=== PATIENT | male | born 1985 | race Hispanic/Latino ===

== ENCOUNTER 2018-05-24 12:48 | Emergency (ER) | payer OTHER ==
[~2018-05-24] VITALS: Ht 172.7 cm; Wt 99.8 kg
--- OUTSIDE RECORDS SUMMARY | 2018-05-24 12:51 | XMS REPORT ---
Author Author [facility] Address Unknown Phone Unavailable Care Team Providers Care Interior Design Faculty Member Name Role Phone ERNESTO GRAHAM Unavailable Unavailable Problems This patient has no known problems. Allergies, Adverse Reactions, Alerts This patient has no known allergies or adverse reactions. Medications This patient has no known medications. Results Test Description Test Time Test Comments Text Results Atomic Results Result Comments TISSUE EXAM 2017-09-07 14:22:00 Surgical Pathology Report Case: [id number] Authorizing Provider: Emily Graham Collected: 09/05/2017 1136 MD Ernesto Ordering Location: [facility] ENDOSCOPY Received: 09/05/2017 1505 SERVICES Pathologist: Kathleen Holguin MD Specimens: A) - Small Bowel, NOS B) - Stomach C) - Biopsy, Gastroesophageal Junction, esophagitis A. SMALL BOWEL, BIOPSY: - FEATURES SUGGESTIVE OF PEPTIC DUODENITISB. STOMACH, BIOPSY: - CHRONIC INACTIVE GASTRITIS, MILD C. 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 Clinical correlation recommended. The endoscopy report is reviewed in conjunction with the case.The slides from specimens A and C were shown in consultation to Dr. Teresa Orourke who agrees with the diagnosis.60411 X 3, 94837 X 3Precordial pain, dyspepsia, burping, epigastric painA. Small bowel biopsy; B. Stomach biopsy; C. Gastroesophageal junction biopsyThe specimen is received in three containers of formalin all labeled with the patient's information. Part A labeled "small bowel biopsy" consists of three fragments of stauffer tissue ranging from 0.1 to 0.2 cm, submitted A1. Part B labeled "stomach biopsy" consists of three fragments of stauffer tissue ranging from 0.1 to 0.4 cm, submitted B1. Part C labeled "gastroesophageal junction biopsy" and consists of two fragments of stauffer-white soft tissue ranging from less than 0.1 to 0.2 cm, submitted C1. CG/pl A. Sections through the small bowel biopsy as well deeper level show small bowel mucosa with focally mildly blunted villi. There is mildly increased chronic inflammation in the lamina propria. Jayden glands are present. PAS stain highlights the focal gastric metaplasia. There are no granulomas, infectious organisms, dysplasia or m alignancy. B. Sections of the stomach biopsy show gastric antrum and oxyntic type mucosa. There is mildly increased chronic inflammation in the lamina propria. There is no significant acute inflammation. There is no intestinal metaplasia, dysplasia or malignancy. Warthin-starry stain for Helicobacter pylori is negative. C. Sections of the gastroesophageal junction biopsies show columnar junctional mucosa and a detached piece of gastric foveolar mucosa. The detached mucosa has focal intestinal metaplasia. There is no dysplasia or malignancy. The junctional mucosa has chronic inflammation in the stroma. The squamous epithelium has mild basilar hyperplasia. Warthin-starry stain for Helicobacter pylori is negative. The following special studies were performed on this case and the interpretation is incorporated in the diagnostic report above:A. PAS - positive for gastric metaplasiaB and C: Warthin-starry - negative for Helicobacter pylori.
--- OUTSIDE RECORDS SUMMARY | 2018-05-24 12:51 | XMS REPORT | Clinical Summary ---
Author Author [facility] Organization [facility] Address Unknown Phone Unavailable Care Team Providers Care Director [employer] Name Role Phone Partha Dallas MD PCP Allergies No Known Allergies Medications End Date Status Medication Sig Dispensed Refills Start Date Active cholecalciferol, vitamin Take 1,000 0 D3, 1,000 unit capsule Units by mouth daily. Active omeprazole (PRILOSEC) 40 40 mg daily . 0 MG capsule 8 09/04/2017 Discontinued pantoprazole (PROTONIX) Take 1 tablet 90 tablet 3 40 MG tabletIndications: (40 mg total) 8 Belching, by mouth Gastroesophageal reflux daily. disease without esophagitis 09/04/2017 Discontinued ergocalciferol (VITAMIN Take 1 8 capsule 0 D) 50,000 unit capsule 8 capsuleIndications: (50,000 Units Vitamin D deficiency total) by mouth once a week For 8weeks. 09/05/2017 Discontinued pantoprazole (PROTONIX) Take 40 mg by 0 40 MG tablet mouth daily. Active Problems Problem Noted Date Annual physical exam 10/22/2017 Screening for depression 10/22/2017 Immunization counseling 10/22/2017 BMI 35.0-35.9,adult 10/22/2017 Varicocele 10/22/2017 Gastroesophageal reflux disease without esophagitis 04/26/2017 Needs flu shot 01/26/2017 Hypertriglyceridemia 01/26/2017 Insulin resistance 10/17/2016 Mixed hyperlipidemia 10/17/2016 Vitamin D deficiency 10/17/2016 Encounter to establish care with new doctor 05/24/2016 Need for Tdap vaccination 05/24/2016 Resolved Problems Problem Noted Date Resolved Date BMI 37.0-37.9, adult 01/26/2017 10/22/2017 Annual physical exam 10/16/2016 10/22/2017 Screening for depression 10/16/2016 10/22/2017 Obesity, unspecified obesity severity, unspecified obesity type 10/16/2016 10/22/2017 Acid indigestion 05/24/2016 10/22/2017 Belching 05/24/2016 10/22/2017 Encounters Care Team Description Date Type Specialty Partha Dallas Jr., MD Annual physical exam (Primary Dx); Screening for depression; Immunization counseling; Hypertriglyceridemia; Insulin resistance; Mixed hyperlipidemia; Vitamin D deficiency; Gastroesophageal reflux disease without esophagitis; Varicocele; BMI 35.0-35.9,adult 10/22/2017 Office Visit Internal Medicine Tk Stark MD 09/05/2017 Anesthesia Event Emily Baptiste MD UPPER ENDOSCOPY,BIOPSY 09/05/2017 Surgery Emily Baptiste MD 09/05/2017 Hospital Encounter Resource, [facility] Phone 09/04/2017 Hospital Pre-Admission Testing Encounter Partha Dallas Jr., MD Referral needed 08/13/2017 Telephone Internal Medicine Partha Dallas Jr., MD Vitamin D deficiency 07/11/2017 Refill Internal Medicine Partha Dallas Jr., MD Vitamin D deficiency 06/18/2017 Refill Internal Medicine after 05/23/2017 Immunizations Name Dates Previously Given Next Due INFLUENZA (Afluria)_0.5mL 01/26/2017 QIV_IM (18 yr+) Influenza Three-TIV PF 5+ 05/24/2016 YR Tdap 05/24/2016 Family History Medical History Relation Name Comments Hyperlipidemia Father Hypertension Father Cirrhosis Maternal Aunt liver transplant Liver disease Maternal Aunt cirrhosis, liver transplant Cirrhosis Maternal liver transpant Uncle Cancer Paternal prostate Grandfather Diabetes Neg Hx Stroke Neg Hx Relation Name Status Comments Father Alive Maternal Aunt Maternal Grandfather Alive Maternal Uncle Mother Alive Paternal Grandfather Social History Date Tobacco Use Types Packs/Day Years Used Never Smoker Smokeless Tobacco: Never Used Tobacco Cessation: Counseling Given: No Alcohol Use Drinks/Week oz/Week Comments Yes no ETOH Sex Assigned at Date Recorded Not on file Industry Job Start Date Occupation Not on file Not on file Not on file Travel End Travel History Travel Start No recent travel history available. Last Filed Vital Signs Time Taken Vital Sign Reading 10/22/2017 8:58 AM CDT Blood Pressure 112/82 10/22/2017 8:58 AM CDT Pulse 87 10/22/2017 8:58 AM CDT Temperature 36.8 C (98.3 F) 09/05/2017 12:50 PM CDT Respiratory Rate 16 10/22/2017 8:58 AM CDT Oxygen Saturation 98% - Inhaled Oxygen - Concentration 10/22/2017 8:58 AM CDT Weight 105.7 kg (233 lb 1.6 oz) 10/22/2017 8:58 AM CDT Height 172.7 cm (5' 8") 10/22/2017 8:58 AM CDT Body Mass Index 35.44 Plan of Treatment Care Team Description Date Type Specialty Partha Dallas Jr., MD [address] [id number] 10/22/2018 Office Visit Internal Medicine Health Maintenance Due Date Last Done Comments INFLUENZA VACCINE 12/31/2017 01/26/2017, 05/24/2016 Procedures Comments Procedure Name Priority Date/Time Associated Diagnosis MICROSCOPIC EXAMINATION Routine 10/22/2017 9:33 AM CDT UA/M W/RFLX CULTURE, ROUT AP Routine 10/22/2017 Annual physical exam 9:33 AM CDT Insulin resistance MAGNESIUM Routine 10/22/2017 Annual physical exam 9:33 AM CDT Gastroesophageal reflux disease without esophagitis MICROALBUMIN / CREATININE Routine 10/22/2017 Annual physical exam URINE RATIO 9:33 AM CDT Insulin resistance TSH Routine 10/22/2017 Annual physical exam 9:33 AM CDT T4, FREE Routine 10/22/2017 Annual physical exam 9:33 AM CDT VITAMIN D, 25-HYDROXY Routine 10/22/2017 Annual physical exam 9:33 AM CDT Vitamin D deficiency LIPID PANEL Routine 10/22/2017 Annual physical exam 9:33 AM CDT Hypertriglyceridemia Mixed hyperlipidemia HGB A1C WITH EAG ESTIMA Routine 10/22/2017 Annual physical exam 9:33 AM CDT Insulin resistance COMPREHENSIVE METABOLIC Routine 10/22/2017 Annual physical exam PANEL 9:33 AM CDT Hypertriglyceridemia Insulin resistance Mixed hyperlipidemia Vitamin D deficiency CBC W/PLT COUNT & AUTO Routine 10/22/2017 Annual physical exam DIFFERENTIAL 9:33 AM CDT REPORT OF PROCEDURE - 09/05/2017 ENDOSCOPY URL 12:05 PM CDT TISSUE EXAM AP Routine 09/05/2017 11:36 AM CDT ENDOSCOPY,CAPSULE PH 09/05/2017 Precordial pain MONITORING 10:00 AM CDT Dyspepsia Burping Epigastric pain Special Needs (OFF MEDICATION ) UPPER ENDOSCOPY,BIOPSY 09/05/2017 Precordial pain 10:00 AM CDT Dyspepsia Burping Epigastric pain Special Needs (OFF MEDICATION ) after 05/23/2017 Results * MICROSCOPIC EXAMINATION (10/22/2017 9:33 AM CDT) WBC 0-5 0 - 5 /hpf [facility] RBC 0-2 0 - 2 /hpf [facility] 1 Epithelial Cells (non 0-10 0 - 10 /hpf [facility] renal) Crystals Present (A) N/A [facility] Crystal Type Calcium Oxalate N/A [facility] 1 Mucus Threads Present Not Estab. [facility] 1 Bacteria Few None seen/ [facility] 1 Narrative Performed At Performed at:[facility] [address] [place], [id number] Field Support Technician: Warner Escobar MD, Phone:[phone] Performing Organization Address City/State/[facility] Phone Number [facility] * UA/M W/RFLX CULTURE, ROUT (10/22/2017 9:33 AM CDT) Specific Guy, UA 1.026 1.005 - 1.03 [facility] pH, UA 6.0 5.0 - 7.5 [facility] Color, UA Yellow Yellow [facility] 1 Appearance Clear Clear [facility] 1 WBC Esterase Negative Negative [facility] Protein, UA Negative Negative/T [facility] 1 Glucose, Urine Negative Negative [facility] 1 Ketones, UA Trace (A) Negative [facility] 1 Blood, UA Negative Negative [facility] 1 Bilirubin, UA Negative Negative [facility] 1 Urobilinogen,Semi-Qn 0.2 0.2 - 1.0 mg/dL [facility] 1 Nitrite, UA Negative Negative [facility] 1 Microscopic Examination CommentComment: Microscopic [facility] 1 follows if indicated. Microscopic Examination See below:Comment: Microscopic [facility] 1 was indicated and was performed. Urinalysis Reflex CommentComment: This specimen [facility] 1 will not reflex to a Urine Culture. Specimen Urine - Urine, Clean Catch Narrative Performed At Performed at:[address] [place], [place] [id number] Field Support Technician: Warner Escobar MD, Phone:[phone] Performing Organization Address [facility] Phone Number [facility] * HGB A1C WITH EAG ESTIMA ([facility] & [facility] Only) (10/22/2017 9:33 AM CDT) Hemoglobin A1c 5.3 4.8 - 5.6 % [facility] Comment: Pre-diabetes: 5.7 - 6.4 Diabetes: >6.4 Glycemic control for adults with diabetes: <7.0 Hemoglobin A1c 105 mg/dL [facility] 1 Narrative Performed At Performed at:[address] [place], [place] [id number] Field Support Technician: Warner Escobar MD, Phone:[phone] Performing Organization Address [facility] Phone Number [facility] * Microalbumin / creatinine urine ratio (10/22/2017 9:33 AM CDT) Creatinine, Urine 305.4 Not Estab. mg/dL [facility] 1 Microalbumin, Urine 13.2 Not Estab. ug/mL [facility] 1 Microalb/Creat Ratio 4.3 0.0 - 30.0 mg/g creat [facility] 1 Specimen Urine Narrative Performed At Performed at:[address] [place], [place] [id number] Field Support Technician: Warner Escobar MD, Phone:[phone] Performing Organization Address [facility] Phone Number [facility] * Vitamin D, 25-Hydroxy (10/22/2017 9:33 AM CDT) Vitamin D, 25-Hydroxy 27.6 (L) 30.0 - 100.0 ng/mL [facility] Comment: Vitamin D deficiency has been defined by the [place] of Medicine and an Endocrine Society practice guideline as a level of serum 25-OH vitamin D less than 20 ng/mL (1,2). The Endocrine Society went on to further define vitamin D insufficiency as a level between 21 and 29 ng/mL (2). 1. IOM ([place] of Medicine). 2010. Dietary reference intakes for calcium and D. [place]: The National Academies Press. 2. Sherri MF, [place], Rob SALDAÑA, et al. Evaluation, treatment, and prevention of vitamin D deficiency: an Endocrine Society clinical practice guideline. JCEM. 2010; 96(7):1911-30. Specimen Blood Narrative Performed At Performed at:01 - [facility] [place] [facility] [address] [place], [id number] Field Support Technician: Warner Escobar MD, Phone:[phone] Performing Organization Address City/State/Zipcode Phone Number [facility] * CBC W/PLT COUNT & AUTO DIFFERENTIAL (10/22/2017 9:33 AM CDT) WBC 4.5 3.4 - 10.8 x10E3/uL [facility] RBC 5.37 4.14 - 5.80 x10E6/uL [facility] 1 Hemoglobin 15.4 13.0 - 17.7 g/dL [facility] 1 Hematocrit 45.8 37.5 - 51.0 % [facility] 1 MCV 85 79 - 97 fL [facility] MCH 28.7 26.6 - 33.0 pg [facility] MCHC 33.6 31.5 - 35.7 g/dL [facility] RDW 13.4 12.3 - 15.4 % [facility] Platelets 198 150 - 379 x10E3/uL [facility] % Neutros 57 Not Estab. % [facility] % Lymphs 35 Not Estab. % [facility] % Monos 5 Not Estab. % [facility] % Eos 3 Not Estab. % [facility] % Baso 0 Not Estab. % [facility] # Neutros 2.6 1.4 - 7.0 x10E3/uL [facility] # Lymphs 1.6 0.7 - 3.1 x10E3/uL [facility] # Monos 0.2 0.1 - 0.9 x10E3/uL [facility] # Eos 0.1 0.0 - 0.4 x10E3/uL [facility] 1 Baso (Absolute) 0.0 0.0 - 0.2 x10E3/uL [facility] % Immature Grans 0 Not Estab. % [facility] # Immature Grans 0.0 0.0 - 0.1 x10E3/uL [facility] 1 Specimen Blood Narrative Performed At Performed at:[address] [place], [place] [id number] Field Support Technician: Warner Escobar MD, Phone:[phone] Performing Organization Address [facility] Phone Number [facility] 1 * TSH (10/22/2017 9:33 AM CDT) TSH 1.740 0.450 - 4.50 uIU/mL [facility] 1 Specimen Blood Narrative Performed At Performed at:[address] [place], [place] [id number] Field Support Technician: Warner Escobar MD, Phone:[phone] Performing Organization Address [facility] Phone Number [facility] 1 * T4, free (10/22/2017 9:33 AM CDT) T4,Free(Direct) 1.29 0.82 - 1.77 ng/dL [facility] Thyroxine (T4) 7.1 4.5 - 12.0 ug/dL [facility] 1 Specimen Blood Narrative Performed At Performed at:[address] [place], [place] [id number] Field Support Technician: Warner Escobar MD, Phone:[phone] Performing Organization Address [facility] Phone Number [facility] 1 * Magnesium (10/22/2017 9:33 AM CDT) Magnesium, Serum 2.1 1.6 - 2.3 mg/dL [facility] 1 Specimen Blood Narrative Performed At Performed at: [facility] [place] [facility] [address] [place], [id number] Field Support Technician: Warner Escobar MD, Phone:[phone] Performing Organization Address [facility] Phone Number [facility] * Lipid panel (10/22/2017 9:33 AM CDT) Cholesterol, Total 242 (H) 100 - 199 mg/dL [facility] Triglycerides 172 (H) 0 - 149 mg/dL [facility] HDL Cholesterol 45 >39 mg/dL [facility] 1 VLDL Cholesterol Monster 34 5 - 40 mg/dL [facility] 1 LDL Cholesterol Calc 163 (H) 0 - 99 mg/dL [facility] 1 LDL/HDL Ratio 3.6 0.0 - 3.6 ratio [facility] Comment: LDL/HDL Ratio Me nWomen 1/2 Avg.Risk1.01.5 Avg.Risk3.6 3.2 2X Avg.Risk6.25.0 3X Avg.Risk8.06.1 Specimen Blood Narrative Performed At Performed at: [facility] [address] [place], [id number] Field Support Technician: Warner Escobar MD, Phone:[phone] Performing Organization Address [facility] Phone Number [facility] * Comprehensive metabolic panel (10/22/2017 9:33 AM CDT) Glucose, Serum 100 (H) 65 - 99 mg/dL [facility] BUN 13 6 - 20 mg/dL [facility] 1 Creatinine, Serum 1.01 0.76 - 1.27 mg/dL [facility] 1 eGFR If NonAfricn Am 98 >59 mL/min/1.73 [facility] 1 eGFR If Africn Am 113 >59 mL/min/1.73 [facility] 1 BUN/Creatinine Ratio 13 9 - 20 [facility] Sodium, Serum 138 134 - 144 mmol/L [facility] 1 Potassium, Serum 4.2 3.5 - 5.2 mmol/L [facility] 1 Chloride, Serum 96 96 - 106 mmol/L [facility] 1 Carbon Dioxide, Total 25 20 - 29 mmol/L [facility] 1 Calcium, Serum 9.2 8.7 - 10.2 mg/dL [facility] 1 Protein, Total, Serum 7.2 6.0 - 8.5 g/dL [facility] 1 Albumin, Serum 4.6 3.5 - 5.5 g/dL [facility] 1 Globulin, Total 2.6 1.5 - 4.5 g/dL [facility] A/G Ratio 1.8 1.2 - 2.2 [facility] 1 Bilirubin, Total 0.5 0.0 - 1.2 mg/dL [facility] 1 Alkaline Phosphatase, S 70 39 - 117 IU/L [facility] 1 AST (SGOT) 23 0 - 40 IU/L [facility] 1 ALT (SGPT) 59 (H) 0 - 44 IU/L [facility] 1 Specimen Blood Narrative Performed At Performed at:01 - [facility] [place] [facility] [address] [facility], [id number] Field Support Technician: Warner Escobar MD, Phone:[phone] Performing Organization Address City/State/Zipcode Phone Number [facility] * REPORT OF PROCEDURE - ENDOSCOPY URL (09/05/2017 12:05 PM CDT) Narrative Performed At * Tissue Exam (09/05/2017 11:36 AM CDT) Case Report Surgical Pathology [facility] Report [facility] Case: [id number] Authorizing Provider:Emily Baptiste Collected: 09/05/2017 Concha Eller MD Ordering Location: [facility] ENDOSCOPY Received: 09/05/2017 1505 SERVICES Pathologist: Kathleen Holguin MD Specimens: A) - Small Bowel, NOS B) - Stomach C) - Biopsy, Gastroesophageal Junction, esophagitis DIAGNOSIS A. SMALL BOWEL, BIOPSY: [facility] - FEATURES SUGGESTIVE OF [facility] PEPTIC DUODENITIS B. STOMACH, BIOPSY: - CHRONIC INACTIVE GASTRITIS, MILD C. 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 Clinical correlation recommended. The endoscopy report is reviewed in conjunction with the case. The slides from specimens A and C were shown in consultation to Dr. Teresa Orourke who agrees with the diagnosis. CPT Code(s) 26708 X 3, 77067 X 3 [facility] CLINICAL HISTORY Precordial pain, dyspepsia, [facility] burping, epigastric pain [facility] SPECIMEN SOURCE A. Small bowel biopsy; B. [facility] Stomach biopsy; C. [facility] Gastroesophageal junction biopsy GROSS DESCRIPTION The specimen is received in [facility] three containers of formalin [facility] all labeled with the patient's information. Part [...] 0.1 to 0.2 cm, submitted C1. CG/pl MICROSCOPIC DESCRIPTION A. Sections through the small [facility] bowel biopsy as well deeper [facility] level show small bowel mucosa with focally mildly blunted villi. There is mildly increased chronic inflammation in the lamina propria. Jayden glands are present. PAS stain highlights the focal gastric metaplasia. There are no granulomas, infectious organisms, dysplasia or malignancy. B. Sections of the stomach biopsy show [...] Warthin-starry stain for Helicobacter pylori is negative. SPECIAL STUDIES The following special studies [facility] were performed on this case [facility] and the interpretation is incorporated in the diagnostic report above: A. PAS - positive for gastric metaplasia B and C: Warthin-starry - negative for Helicobacter pylori. Specimen Tissue - Small Bowel, NOS Performing Organization Address City/State/Zipcode Phone Number [facility] [address] [place] [address] [facility] after 05/23/2017 Insurance Payer Benefit Subscriber ID Type Phone Address Plan / Group [employer]UE [employer] BCBS ADV xxxxxxxxxxxx [phone] [address] [place] [address] EXCHANGE
[2018-05-24] MEDS ORDERED: CEFAZOLIN SOD 500 MG VIAL IM ONE (13:45)
[2018-05-24] MEDS ORDERED: HYDROCODONE/APAP 10MG-325MG TAB PO ONE (14:00)
[2018-05-24] MEDS ORDERED: CEFAZOLIN SOD 1 GM VIAL IM ONE (14:00)
--- NOTE | 2018-05-24 14:51 | Diagnostic Imaging Report ---
Exam: Left hand 4 views History: Pain Comparison: None. Findings: Comminuted fractures of the maurice of the third and fourth finger distal phalanx. Soft tissue swelling. Joint space is intact. Impression: Comminuted fractures of the maurice of the third and fourth finger distal phalanx. Soft tissue swelling. Signed by: Dr. Esteban Macedo M.D. on 05/24/2018 2:47 PM
== END 2018-05-24 15:17 | disposition home or self-care (01) ==
LOC: ER 12:48
DX: S62.653B Nondisplaced fracture of middle phalanx of left middle finger, initial encounter for open fracture (principal); S62.665B Nondisplaced fracture of distal phalanx of left ring finger, initial encounter for open fracture; S61.213A Laceration without foreign body of left middle finger without damage to nail, initial encounter; S61.215A Laceration without foreign body of left ring finger without damage to nail, initial encounter; W23.1XXA Caught, crushed, jammed, or pinched between stationary objects, initial encounter; Y99.0 Civilian activity done for income or pay
CPT/HCPCS: 11720; 11740; 73130; 99284; J0690